=== PATIENT | female | born 1995 | race African-American/Black ===

== ENCOUNTER 2020-12-19 08:11 | Emergency (ER) | payer SELFPAY ==
[2020-12-19] MEDS ORDERED: Fluorescein Opthalmic Strip ONE (09:06)
[2020-12-19] MEDS ORDERED: Tetracaine HCl 0.5% Ophth Soln 2 ML Bottle ONE (09:06)
[2020-12-19 09:19] LABS: Bilirubin Negative (Negative); Blood, Urine Moderate (Negative); Clarity Slightly Cloudy (Clear); Glucose, Urine (Dipstick) Negative (Negative); Ketone, Urine Negative (Negative); Leukocyte Large (Negative); Nitrite Negative (Negative); Protein, Urine (Dipstick) Negative (Neg-Trace); Specific Gravity, Urine 1.025 (1.005-1.030); Urobilinogen 0.2 mg/dL (Less than 2)
[2020-12-19 09:22] LABS: Pregnancy Test - Urine (BHCG) Negative (Negative); Pregu Control Background? CLEAR/WHITE (CLR/WHITE); Pregu Control Bar Appear? YES (CONTROL BAR); Specific Gravity 1.013 (1.002-1.036)
[2020-12-19 09:30] LABS: Mucous/LPF 1+ LPF (<2+)
[2020-12-19 09:39] LABS: Bacteria/HPF 1+ HPF (None Seen); Yeast-Budding 2+ HPF (None Seen)
[2020-12-19 09:47] LABS: Wet Prep Trichomonas Trichomonas Absent (None Seen)
[2020-12-19 09:56] LABS: Wet Prep Clue Cells Clue Cells PRESENT (None Seen); Wet Prep Pathologist Review Spermatozoa Absent (None Seen); Wet Prep Spermatozoa 2nd Revie Agree with result (None Seen)
[2020-12-19 10:28] LABS: #Basophils 0.1 thou/uL (0.0-0.2); #Eosinphils 0.2 thou/uL (0.0-0.7); #Lymphocytes 1.9 thou/uL (1.20-3.40); #Monocytes 0.7 thou/uL (0.11-0.59); #Neutrophils 11.6 thou/uL (1.40-6.50); %Eosinophils 1.4 % (0.0-10.0); %Lymphocytes 12.8 % (21.0-51.0); %Monocytes 4.7 % (0.0-10.0); %Neutrophils 80.1 % (42.0-75.0); Hemoglobin 12.5 g/dL (12.0-16.0); Mean Corpuscular HGB CONC 32.1 g/dL (32.0-36.0); Mean Corpuscular Hemoglobin 30.3 pg (27.0-31.0); Mean Corpuscular Volume 94.3 fL (78.0-98.0); Mean Platelet Volume 6.5 fL (7.4-10.4); Platelet Count 329 thou/uL (130-400); RBC Distribution Width 12.3 % (11.5-14.5); Red Blood Cell (RBC) Count 4.13 mill/uL (4.20-5.40); White Blood Cell (WBC) Count 14.5 thou/uL (4.8-10.8)
[2020-12-19 10:38] LABS: ALT (SGPT) 22 U/L (8-55); AST (SGOT) 20 U/L (5-34); Albumin 3.9 g/dL (3.5-5.0); Alkaline Phosphatase 104 U/L (40-110); Anion Gap 15 mmol/L (10-20); BUN (Urea Nitrogen) 8 mg/dL (7.0-18.7); Bilirubin, Total 0.5 mg/dL (0.2-1.2); Calc. Creatinine Clearance 0 mL/min (70-130); Calcium 9.5 mg/dL (7.8-10.44); Carbon Dioxide 19 mmol/L (22-29); Chloride 105 mmol/L (98-107); Globulin 5.1 g/dL (2.4-3.5); Glucose 140 mg/dL (70-105); Potassium 4.1 mmol/L (3.5-5.1); Sodium 135 mmol/L (136-145)
[2020-12-19] MEDS ORDERED: cefTRIAXone\\ROCEPHIN 1 GM VIAL ONE (10:44)
[2020-12-19] MEDS ORDERED: Azithromycin 250 MG TAB ONE (10:44)
[2020-12-19] MEDS ORDERED: Clindamycin/D5W 900 mg/50 ml Premix Bag ONE (10:44)
[2020-12-19 10:53] LABS: INR-International Normal Ratio 1.4
[2020-12-19 10:54] LABS: PTT 35.4 sec (22.9-36.1)
[2020-12-19 10:56] LABS: Prothrombin Time 16.7 sec (12.0-14.7)
[2020-12-19 11:55] LABS: Bilirubin Negative (Negative); Blood, Urine Negative (Negative); Clarity Clear (Clear); Glucose, Urine (Dipstick) Negative (Negative); Ketone, Urine Negative (Negative); Leukocyte Negative (Negative); Nitrite Negative (Negative); Protein, Urine (Dipstick) Negative (Neg-Trace)
[2020-12-19 19:31] LABS: Chlamydia by PCR Not Detected (NotDetected); GC by PCR Not Detected (NotDetected)
== END 2020-12-19 12:57 | disposition home or self-care (01) ==
LOC: NAV ERS 08:11
DX: B37.2 Candidiasis of skin and nail (principal); B37.3 Candidiasis of vulva and vagina; L73.2 Hidradenitis suppurativa; H11.002 Unspecified pterygium of left eye; A59.01 Trichomonal vulvovaginitis; E11.9 Type 2 diabetes mellitus without complications; F17.210 Nicotine dependence, cigarettes, uncomplicated; Z79.84 Long term (current) use of oral hypoglycemic drugs
CPT/HCPCS: 72193; 80053; 81003; 81015; 81025; 85025; 85610; 85730; 87070; 87077; 87205; 87210; 87491; 87591; 96365; 96375; J0696; J3490